=== PATIENT | female | born 1960 | race Caucasian/White ===

== ENCOUNTER → 2021-09-10 | Outpatient (CLI) | payer OTHER ==
--- NOTE | 2021-09-10 17:34 | RAD ---
XR LUMBAR SPINE 2-3V History: Low back pain Comparison: None. Technique: 2 views of the lumbar spine. Findings: There are 5 non-rib bearing lumbar vertebral segments. There is no evidence of fracture. No destructive osseous lesions. Mild levoconvex curvature apex at L2-L3. Mild anterolisthesis of L4 and L5. Facet hypertrophy at L4-L5 and L5-S1. Moderate to severe disc space narrowing L2-L3. Mild disc space narrowing L3-L4 and L4-L5. Sacroiliac joints are unremarkable. Soft tissues are unremarkable. IMPRESSION: 1. Degenerative changes the lumbar spine with disc space narrowing moderate to severe at L2-L3. Electronically signed by: Daryl Dailey MD (09/10/2021 5:31 PM) [id number]
== END ==
LOC: RAD 12:43
PROVIDERS: ATTEND Anesthesiology Pain Medicine
DX: Z02.71 Encounter for disability determination (principal); M47.816 Spondylosis without myelopathy or radiculopathy, lumbar region; M48.061 Spinal stenosis, lumbar region without neurogenic claudication; M43.16 Spondylolisthesis, lumbar region; M43.8X6 Other specified deforming dorsopathies, lumbar region
CPT/HCPCS: 72100